=== PATIENT | male | born 1955 ===

== ENCOUNTER 2022-08-22 06:00 | Outpatient (RCR) | payer MEDICARE, SELFPAY | END 2022-09-02 23:59 | disposition home or self-care (01) | LOC: GPT 06:00 | PROVIDERS: Visit Provider Family Medicine | DX: M54.2 Cervicalgia (principal) | CPT/HCPCS: 97110; 97112; 97140; 97161 ==

== ENCOUNTER 2022-09-03 06:00 | Outpatient (RCR) | payer MEDICARE, SELFPAY | END 2022-10-03 23:59 | disposition home or self-care (01) | LOC: GPT 06:00 | PROVIDERS: Visit Provider Family Medicine | DX: M54.2 Cervicalgia (principal) | CPT/HCPCS: 97110; 97112; 97140 ==

== ENCOUNTER 2022-10-04 06:00 | Outpatient (RCR) | payer MEDICARE, SELFPAY | END 2022-10-25 23:59 | disposition home or self-care (01) | LOC: GPT 06:00 | PROVIDERS: Visit Provider Family Medicine | DX: M54.2 Cervicalgia (principal) | CPT/HCPCS: 97110; 97140; 97164; 97530 ==